=== PATIENT | female | born 2000 | race African-American/Black ===

== ENCOUNTER 2020-08-29 12:43 | Emergency (ER) | payer OTHER ==
[~2020-08-29] VITALS: Ht 162.6 cm; Wt 62.1 kg
[2020-08-29 13:07] VITALS: BP_SYST 118
[2020-08-29] MEDS ORDERED: IBUP-1969 PO (16:36)
[2020-08-29] MEDS ORDERED: SOM350 PO (16:36)
[2020-08-29 17:23] VITALS: BP_SYST 118
== END 2020-08-29 17:23 | disposition home or self-care (01) ==
LOC: SED 12:43
DX: S13.4XXA Sprain of ligaments of cervical spine, initial encounter (principal); S33.5XXA Sprain of ligaments of lumbar spine, initial encounter; S09.90XA Unspecified injury of head, initial encounter; Z79.899 Other long term (current) drug therapy; V49.59XA Passenger injured in collision with other motor vehicles in traffic accident, initial encounter; Y93.89 Activity, other specified; Y92.89 Other specified places as the place of occurrence of the external cause; Y99.8 Other external cause status
CPT/HCPCS: 70450-TC; 71045; 72040-TC; 72100-TC; 76376; 99284

== ENCOUNTER 2021-11-16 04:35 | Emergency (ER) | payer BC, MEDICAID ==
[~2021-11-16] VITALS: Ht 162.6 cm; Wt 59.0 kg
[~2021-11-16 04:35] MED LIST: IBUP-1969 PO; SOM350 PO
[2021-11-16 05:00] VITALS: BP_SYST 121
--- NOTE | 2021-11-16 05:00 | NUR ---
Pt ambulatory from home accompanied by sig. other with c/o 101 F Temp and body aches x1 day. Pt states she took a home covid test prior to ED arrival and it was NEG. Denies any N&V or loose stools. Denies taking any OTC for elevated temp. Temp in ED was 98.7 F. Arrived to ED in no acute distress. Breathing adequately on RA.
--- NOTE | 2021-11-16 05:04 | NUR ---
Patient triaged and placed in TENT due to covid/Flu related symptoms. VSS and patient appears in no acute distress at this time. Accompanied by sig. other. notified of need for MSE.
--- NOTE | 2021-11-16 05:09 | NUR ---
Pt refused test. Pt states, "I just finished my cycle. I'm not "
--- NOTE | 2021-11-16 05:10 | NUR ---
ER at bedside examining patient.
--- NOTE | 2021-11-16 05:48 | NUR ---
Pt refused Tylenol 1g administration at this time.
[2021-11-16] MEDS ORDERED: ACETAMINOPHEN 500 MG TABLET ONE (05:50)
[2021-11-16 05:59] VITALS: BP_SYST 114
[2021-11-16] MEDS ORDERED: ACETAMINOPHEN 500 MG TABLET PO ONE (06:00)
--- NOTE | 2021-11-16 06:03 | NUR ---
Patient given written and verbal discharge instructions and verbalizes understanding. ER MD Lewis discussed with patient the results and treatment provided. Patient in stable condition. ID arm band removed. Patient educated on pain/fever management and to follow up with PMD. Opportunity for questions provided and answered.
== END 2021-11-16 05:59 | disposition home or self-care (01) ==
LOC: SED 04:35
DX: B34.9 Viral infection, unspecified (principal); R50.9 Fever, unspecified; Z79.899 Other long term (current) drug therapy; Z20.822 Contact with and (suspected) exposure to COVID-19
CPT/HCPCS: 36415; 99283